=== PATIENT | male | born 1950 | race Caucasian/White ===

== ENCOUNTER → 2017-09-07 | Outpatient (CLI) | payer MEDICARE | END | disposition home or self-care (01) | LOC: PCVCIMAG 14:17 | DX: I87.8 Other specified disorders of veins (principal); M79.89 Other specified soft tissue disorders | CPT/HCPCS: 93970 ==

== ENCOUNTER → 2018-03-28 | Outpatient (CLI) | payer MEDICARE, OTHER | END | disposition home or self-care (01) | LOC: PCVCCLINIC 15:39 | PROVIDERS: ATTEND Internal Medicine Cardiovascular Disease | DX: I10 Essential (primary) hypertension (principal); I35.9 Nonrheumatic aortic valve disorder, unspecified; G47.33 Obstructive sleep apnea (adult) (pediatric); I87.2 Venous insufficiency (chronic) (peripheral); I25.10 Atherosclerotic heart disease of native coronary artery without angina pectoris; E78.00 Pure hypercholesterolemia, unspecified; E78.5 Hyperlipidemia, unspecified | CPT/HCPCS: 36415; 80061; 93005; G0463 ==

== ENCOUNTER → 2018-12-23 | Outpatient (CLI) | payer MEDICARE, OTHER ==
--- NOTE | 2018-12-23 16:50 | PCVCIMAG ---
APPROVED REPORT Study performed: 12/23/2018 14:02:37 EXAM: Comprehensive 2D, Doppler, and color-flow Echocardiogram Patient Location: Echo lab Status: routine BSA: 2.56 HR: 95 bpmBP: 126/78 mmHg Rhythm: sinus tachycardia Other Information Study Quality: Adequate Technically limited study due to body habitus. Risk Factors: Cardiac Risk Factors: HTN Indications aortic stenosis, aortic insufficiency, obesity 2D Dimensions IVSd: 13.10 (7-11mm)LVOT Diam: 22.84 (18-24mm) LVDd: 45.56 mm PWd: 12.96 (7-11mm)Ascending Ao: 34.68 (22-36mm) LVDs: 32.93 (25-40mm) Left Atrium: 52.10 (27-40mm) Aortic Root: 33.06 mm LV Single Plane 4CH: 60.10 % LV Single Plane 2CH: 56.66 % Biplane EF: 59.1 % Volumes Left Atrial Volume (Systole) Single Plane 4CH: 89.01 mLSingle Plane 2CH: 116.35 mL LA ESV Index: 41.00 mL/m2 Aortic Valve AoV Peak Bry.: 2.57 m/s AO Peak Gr.: 26.34 mmHgLVOT Max P.38 mmHg AO Mean Gr.: 13.98 mmHgLVOT Mean P.70 mmHg AO V2 Mean: 1.78 m/sLVOT Max V: 1.26 m/s AO V2 VTI: 52.68 cmLVOT Mean V: 0.92 m/s DANIELLA (VTI): 1.93 [id number] V1 VTI: 24.81 cm DANEILLA Vmax: 2.02 cm2 SV (LVOT): 101.63 mL Mitral Valve E/A Ratio: 0.7 MV Decel. Time: 214.87 ms MV E Max Bry.: 0.53 m/s MV A Bry.: 0.79 m/s IVRT: 89.97 ms Pulmonary Valve PV Peak Bry.: 1.21 m/sPV Peak Gr.: 5.90 mmHg Pulmonary Vein P Vein S: 0.38 m/sP Vein A: 0.45 m/s P Vein D: 0.46 m/sP Vein A Dur.: 155.7 msec P Vein S/D Ratio: 0.83 Tricuspid Valve TR Peak Bry.: 2.73 m/s TR Peak Gr.: 29.77 mmHg Left Ventricle The left ventricle is normal size. There is normal LV segmental wall motion. Mild concentric left ventricular hypertrophy. Left ventricular systolic function is normal. The left ventricular ejection fraction is within the normal range. LVEF is 55%. Grade I - abnormal relaxation pattern. Right Ventricle The right ventricle is normal size. The right ventricular systolic function is normal. Atria Left atrium is mildly dilated. The right atrium size is normal. Aortic Valve The aortic valve is mildly sclerotic. The aortic valve is probably bicuspid, difficult to visualize leaflets. Mild aortic regurgitation. There is trace valvular aortic stenosis. Calculated aortic valve area is 2 cm2 with maximum pressure gradient of 26 mmHg and mean pressure gradient of 14 mmHg. Mitral Valve The mitral valve is normal in structure. Trace mitral regurgitation. No evidence of mitral valve stenosis. Tricuspid Valve The tricuspid valve is normal in structure. Mild tricuspid regurgitation with PAP of 37 mmHg. Pulmonic Valve The pulmonary valve is normal in structure. There is no pulmonic valvular regurgitation. Great Vessels The aortic root is normal in size. IVC is normal in size and collapses >50% with inspiration. Pericardium There is no pericardial effusion. There is no pleural effusion. <Conclusion> The left ventricle is normal size. LVEF is 55%. Grade I - abnormal relaxation pattern. The right ventricle is normal size. Left atrium is mildly dilated. The aortic valve is mildly sclerotic. The aortic valve is probably bicuspid, difficult to visualize leaflets. Mild aortic regurgitation. There is trace valvular aortic stenosis. Calculated aortic valve area is 2 cm2 with maximum pressure gradient of 26 mmHg and mean pressure gradient of 14 mmHg. Trace mitral regurgitation. Mild tricuspid regurgitation with PAP of 37 mmHg. The aortic root is normal in size. There is no pericardial effusion.
== END | disposition home or self-care (01) ==
LOC: PCVCIMAG 14:25
PROVIDERS: ATTEND Internal Medicine Cardiovascular Disease
DX: I08.2 Rheumatic disorders of both aortic and tricuspid valves (principal); E78.5 Hyperlipidemia, unspecified; I10 Essential (primary) hypertension; G47.33 Obstructive sleep apnea (adult) (pediatric); Z79.899 Other long term (current) drug therapy
CPT/HCPCS: 36415; 80061; 93005; 93306; G0463